=== PATIENT | male | born 1990 | race Caucasian/White ===

== ENCOUNTER 2019-02-20 09:51 | Outpatient (REF) | payer MEDICAID, SELFPAY ==
[2019-02-20 15:14] LABS: Cholesterol 203 mg/dL (50-200); Glucose 96 mg/dL (70-100); HDL Cholesterol 45 mg/dL (40-60); LDL CHOLESTEROL 136 mg/dL (<100); Triglyceride 91 mg/dL (30-150)
== END 2019-02-20 10:11 ==
LOC: NCHCN 09:51
PROVIDERS: PCP Nurse Practitioner Family; Visit Provider Nurse Practitioner Family
DX: Z13.1 Encounter for screening for diabetes mellitus (principal); Z13.220 Encounter for screening for lipoid disorders; Z00.00 Encounter for general adult medical examination without abnormal findings; M25.511 Pain in right shoulder
CPT/HCPCS: 80061; 82947; 83721

== ENCOUNTER 2019-09-04 08:54 | Emergency (ER) | payer BC, SELFPAY ==
[2019-09-04] VITALS (32 sets, daily range): BP systolic 113–162; BP diastolic 72–93; PULSE 73–135; RESP 11–29; TEMP 36.9–37; O2SAT 95–100
[2019-09-04] MEDS: Normal Saline Flush 10 ML SYR IVP (09:00)
--- NOTE | 2019-09-04 09:00 | ED.GENADUL_ITS ---
Discharge Plan Disposition Patient Disposition: HOME Condition: Improving Discharge Details Chief Complaint: Chest Pain Clinical Impression: Atypical chest pain Primary Care Provider: Shena Rocha ED Provider: Shane Mitchell Home Meds and New Rx's Prescriptions: New omeprazole 40 mg capsule,delayed release(DR/EC) 40 mg PO DAILY Qty: 20 RF: 0 Discharge Instructions Instructions: Chest Pain (ED) Additional Instructions: Your work-up today included blood work including serial cardiac troponin, chest x-ray, CT scan of the chest. I have ordered an outpatient stress test for you. Please follow-up with Shena Rocha in the office for recheck. Call the office of [facility] for an appointment time. Take Nexium as prescribed for a minimum of 2 weeks. Avoid eating 2 hours prior to bedtime. You may benefit from sleeping with head elevated 2-3 pillows. Return for recurrent chest pain, difficulty breathing, or any other acute concern. Medical Decision Making 29-year-old male presents from home with substernal chest pressure that awoke him from sleep at 3 AM and was associated with vomiting, diaphoresis. Denies si gnificant shortness of breath associated with it. He took some Zantac this morning with some improvement in her eyes feeling better. He is tachycardic and anxious in appearance. His exam is without significant finding. Differential diagnosis includes gastritis, nutcracker esophagus, PE, ACS. Patient given GI cocktail, Nexium, fluid bolus and referred for EKG, laboratory testing, chest x-ray. Diagnostic studies reveal unremarkable chest x-ray. Normal CBC, electrolytes reassuring, troponin negative x2, d-dimer elevated 2073. CT scan of the chest obtained without acute findings. Patient continued to improve, pulse corrected, no further discomfort. Discussed with him that I do feel he merits outpatient stress testing. 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 I will prescribe him 2 weeks of a proton pump inhibitor. He stable and improved, appropriate for discharge to home at this time. He has understand return precautions to the ER. Lab Data Lab results reviewed: Yes I reviewed the patient's lab results. Labs: Laboratory Results - last 24 hr 09/04/19 09/04/19 09/04/19 09:00 09:00 09:00 WBC 7.21 RBC 5.58 Hgb 16.3 Hct 46.0 MCV 82.4 MCH 29.2 MCHC 35.4 RDW 12.9 Plt Count 291 MPV 9.0 Immature Gran % 0.1 Neutrophils % 60.8 Lymphocytes % 27.3 Monocytes % 9.2 Eosinophils % 2.2 Basophils % 0.4 Absolute Neutrophils 4.38 Absolute Lymphocytes 1.97 Absolute Monocytes 0.66 Absolute Eosinophils 0.16 Absolute Basophils 0.03 D-Dimer 2073 H Sodium 141 Potassium 3.9 Chloride 104 Carbon Dioxide 28.0 Anion Gap 9.0 BUN 13 Creatinine 1.01 Estimated GFR/1.73 m2 >= 60.00 Glucose 103 H Calcium 9.2 Magnesium 1.9 Total Bilirubin 0.6 AST 23 ALT 30 Alkaline Phosphatase 65 Troponin I < 0.05 Total Protein 7.9 Albumin 4.1 Lipase 09/04/19 09/04/19 09:00 12:10 WBC RBC Hgb Hct MCV MCH MCHC RDW Plt Count MPV Immature Gran % Neutrophils % Lymphocytes % Monocytes % Eosinophils % Basophils % Absolute Neutrophils Absolute Lymphocytes Absolute Monocytes Absolute Eosinophils Absolute Basophils D-Dimer Sodium Potassium Chloride Carbon Dioxide Anion Gap BUN Creatinine Estimated GFR/1.73 m2 Glucose Calcium Magnesium Total Bilirubin AST ALT Alkaline Phosphatase Troponin I < 0.05 Total Protein Albumin Lipase 150 ECG Data Attestation: I personally reviewed and interpreted this ECG (s) as follows: Prior ECG tracings: not available for review Interpretation: Sinus tachycardia with a rate of 127, the QRS is narrow, there is no ST segment elevation, QTc 424 HPI General Mode of arrival: ambulatory . Date/Time Provider Initiated Documentation: 09/04/19 08:55 . Limitations to Documentation: no limitations . Information obtained by: patient and family . History of Present Illness 29 year old M presents to the emergency department with the chief complaint of 10 out of 10 substernal pressure and vomiting at 3 AM, described as moderate, and is localized to the chest. Patient neck. Patient started experiencing this hour(s) and it has been other (Improving). other things that improve symptom(s), (Sitting upright) Other factors that worsen symptoms (Lying flat) . Patient notes diaphoresis and nausea/vomiting. Patient did receive the following treatments prior to arrival, other (Zantac) Related Data Home Medications Medication Instructions Recorded Confirmed omeprazole 40 mg PO DAILY #20 cap 09/04/19 Previous Rx's Medication Instructions Recorded omeprazole 40 mg PO DAILY #20 cap 09/04/19 Allergies Allergy/AdvReac Type Severity Reaction Status Date / Time No Known Allergies Allergy Unverified 09/04/19 09:03 Review of Systems Review of Systems Narrative: No movement of the pain, denies shortness of breath, no lower extremity pain or swelling, no prolonged immobilization. No family history of sudden . 8 systems reviewed and otherwise negative. [facility] Social History Smoking/Tobacco Use Status: Current every day Tobacco Type: smokeless tobacco Do you feel safe at home: Yes Do you feel safe in your relationship?: Yes Exam Narrative Exam Narrative: GEN: awake, alert, oriented 3. Pleasant, well groomed, interactive, anxious. HEAD: Normocephalic, atraumatic ENT: Mucous membranes moist, oropharynx unremarkable, External ear exam unremarkable EYES: PERRL, EOMI NECK: Full ROM, no PETRA, no menigismus CHEST/RESP: Nontender, clear to auscultation bilateral, no wheeze/rhonchi/rales CARDIOVASCULAR: Regular and tachycardic rhythm, no murmur, rub mariella. 2+ Rad pulse bilateral ABDOMEN: Soft, nontender, no mass. +Bowel sounds EXT: Full ROM, no edema, no rash Neuro: Grossly normal neurologic exam, conversant, interactive. Psych: Speech fluent, thoughts congruent, affect anxious
--- NOTE | 2019-09-04 09:23 | DI.RAD_ITS ---
EXAM: XR CHEST 2V PA LATERAL INDICATION: Chest pressure. COMPARISON: No exams were available for comparison TECHNIQUE: 2D digital imaging was performed. FINDINGS: The heart is not enlarged. Lungs are clear and well expanded. No pleural effusion seen. IMPRESSION: No evidence of acute process.
[2019-09-04 09:38] LABS: Abs Immature Grans 0.01 k/cumm (0.0-0.09); Absolute Basophil Count 0.03 k/cumm (0.0-0.2); Absolute Eosinophil Count 0.16 k/cumm (0.0-0.7); Absolute Lymphocyte Count 1.97 k/cumm (1.2-3.4); Absolute Monocyte Count 0.66 k/cumm (0.11-0.7); Absolute Neutrophil Count 4.38 k/cumm (1.2-6.7); Basophils % 0.4; Eosinophils % 2.2; HGB 16.3 g/dL (13.5-17.5); Immature Grans % 0.1; Lymphocytes % 27.3; Mean Corp. HGB Concentration 35.4 g/dL (32.0-36.0); Mean Corpuscular Hemoglobin 29.2 pg (27.0-33.0); Mean Corpuscular Volume 82.4 fL (80-95); Monocytes % 9.2; Neutrophils % 60.8; Platelet Count 291 x1000/uL (130-400); RBC 5.58 m/cumm (4.50-6.00); RBC Distribution Width 12.9 % (11.8-14.1); White Blood Cell Count 7.21 k/cumm (4.4-10.8)
[2019-09-04] MEDS: Normal Saline 1,000 ML 1000 ML IV (09:52)
[2019-09-04 09:53] LABS: ALT 30 U/L (16-63); AST 23 U/L (15-37); Albumin 4.1 g/dL (3.4-5.0); Alkaline Phosphatase 65 U/L (46-116); BUN 13 mg/dL (7-18); Bilirubin, Total 0.6 mg/dL (0.2-1.0); CREATININE 1.01 mg/dL (0.70-1.30); Calcium 9.2 mg/dL (8.5-10.1); Chloride 104 mmol/L (98-107); Glucose 103 mg/dL (70-100); Magnesium 1.9 mg/dL (1.8-2.4); Potassium 3.9 mmol/L (3.5-5.1); Sodium 141 mmol/L (136-145); Total Protein 7.9 g/dL (6.4-8.2); Troponin I < 0.05 ng/mL (0.00-0.06)
[2019-09-04 10:02] LABS: Lipase 150 U/L (73-393)
[2019-09-04 10:14] LABS: D-Dimer 2073 ng/mlFEU (<500)
--- NOTE | 2019-09-04 10:16 | DI.CT_ITS ---
EXAM: CT CHEST PE CTA CLINICAL HISTORY: Abrupt SOB, Tachycardic, elev DDImer TECHNIQUE: Axial CT angiography was performed with multi-slice acquisition and multi-planar and/or [address] angiography of chest was performed with a bolus infusion of 100 cc of Omnipaque 350. COMPARISON: No exams were available for comparison FINDINGS: Lungs are clear. No pleural effusion or pneumothorax. No evidence of pulmonary embolic disease. Thoracic aorta and major branches appear normal. Tracheobronchial tree appears intact. No mediastina l or hilar adenopathy. Visualized portions of liver, spleen, pancreas, adrenals and kidneys appear normal. IMPRESSION: Negative CTA of the chest.
[2019-09-04] MEDS: Omnipaque 350 MG/ML 100 ML BTL IJ (11:13)
[2019-09-04 13:16] LABS: Troponin I < 0.05 ng/mL (0.00-0.06)
--- NOTE | 2019-09-04 17:32 | NUR.NOTE ---
Nursing Note: Referral faxed to [facility] for follow up. Vanessa Owen.
== END 2019-09-04 14:13 | disposition home or self-care (01) ==
PROVIDERS: Emergency Provider Emergency Medicine; PCP Nurse Practitioner Family
DX: R07.89 Other chest pain (principal); R00.0 Tachycardia, unspecified
CPT/HCPCS: 36415; 71275; 80053; 83690; 93005; 96361; 96374; 99285; 71046; 83735; 84484; 85025; 85379; 93010; 99284; J3490

== ENCOUNTER 2019-09-11 01:03 | Outpatient (CLI) | payer BC, SELFPAY ==
--- NOTE | 2019-09-11 08:30 | ETT_ITS ---
APPROVED REPORT Exam: Exercise Treadmill Patient Location: Out-Patient Stress Nurse: Marilee Haas RN Baseline Rhythm: NSR BMI: 28.47 Indications: Patient was seen in the ED on 09/04/19 with chief complaint of chest pain. Pt describes an episode of being awakened from sleep with severe chest pains radiating into his shoulders it was a ssociated with shortness of breath and nausea, he also vomited. He has had no further episodes since. Medical History Medical History: Fatigue Cardiac Medications: Omeprazole 40 mg daily. , Allergies: No known drug allergies Cardiac Risk Factors: Childhood Asthma. Former smoker quit cigarettes 6 years ago, currently chews to bacoo. Pretest Chest Pain Characteristics: Non-exertional Chest pain Exercise History: Physically active Stress Test Details Test: Exercise stress testing was performed using a Zion protocol. Rest Stress HR Max Heart Rate (APMHR): 189 bpm Resting HR Supine: 93 bpm Target HR (85% APMHR): 160 bpm Resting HR Standin bpm Max HR Achieved: 179 bpm % of APMHR: 94 Recovery HR: 117 bpm HR response to stress: Normal HR response to stress BP Resting BP Supine: 134/80 mmHg Resting BP Standin/90 mmHg Max BP: 210/98 mmHg Recovery BP: 138/72 mmHg BP response to stress: Abnormal hypertensive response to stress. ECG Resting ECG: Sinus Rhythm Stress ECG: Sinus Tachycardia ST Change: No significant ST segment changes Arrhythmia: None Recovery ECG: Sinus Rhythm, normal EKG Recovery ST Change: No significant ST segment changes Recovery Arrhythmia: None Clinical Time of Stop for Zion: 1200 Reason for Termination: Chest pain/Anginal equivalent Stress Symptoms: Chest pain, Dyspnea, General Fatigue Exercise duration: 12 min00 sec Highest Stage Achieved: Stage 4: 4.2 mph at 16% grade. Exercise capacity: 13.48 METs Functional Capacity: Average Capacity Scale: Active Stress ECG Conclusion 1. This patient demonstrated excellent exercise capacity. 2. This represents a maximal stress test. 3. The patient had a hypertensive response to exercise. 4. The patient reported atypical chest pain towards the end of exercise. 5. The Rebolledo Score (7) estimates an annual cardiovascular mortality of 0% and a five year survival of 95% Using the Rebolledo Score there is a low probability of any angiographic coronary disease. 6. There is no prior test available for comparison Test Summary Supine 93 134/80 Standing 112 130/90 1 03:00 10 1.7 128 4.64 144/82 2 02:59 12 2.5 141 7.05 190/84 3 03:00 14 3.4 158 10.16 210/98 4 03:00 16 4.2 179 13.48 210/98 2/10 chest pain. Dull ache left chest. 1 minute recovery 167 186/64 3 minute recovery 129 170/80 4 minute recovery chest pain subsided. 6 minute recovery 118 140/76 9 minute recovery 117 138/72
== END 2019-09-11 01:23 ==
PROVIDERS: PCP Nurse Practitioner Family; Visit Provider Emergency Medicine
DX: R07.9 Chest pain, unspecified (principal); R06.02 Shortness of breath; F17.220 Nicotine dependence, chewing tobacco, uncomplicated
CPT/HCPCS: 93017

== ENCOUNTER → 2023-11-09 01:29 | Outpatient (CLI) | payer OTHER, SELFPAY ==
--- NOTE | 2023-11-09 08:24 | DI.RAD_ITS ---
Exam(s) XR SHOULDER RT COMPLETE 2+V EXAM: XR SHOULDER RT COMPLETE 2+V CLINICAL HISTORY: [id number] Pain right shoulder [id number]. TECHNIQUE: 2D digital imaging was performed of the right shoulder. Five images were obtained. AP, Grashey, Y-view and axillary views were obtained. COMPARISON: No exams were available for comparison FINDINGS: BONES: No acute fracture is present. No bony destructive lesion is seen. JOINTS: No dislocation present. The glenohumeral and acromioclavicular joints are well maintained. SOFT TISSUE: Normal. IMPRESSION: Unremarkable radiographs of the right shoulder. DATA REPOSITORY: RADIATION DOSE DELIVERED:
--- NOTE | 2023-11-09 08:25 | DI.RAD_ITS ---
Exam(s) XR KNEE RT 3V AP,LAT,TAWANNA EXAM: XR KNEE RT 3V AP,LAT,TAWANNA CLINICAL HISTORY: [id number] Pain in unspecified knee. TECHNIQUE: 2D digital imaging was performed of the right knee. Three views obtained. AP, lateral an d PA tunnel views were obtained. COMPARISON: CR XR CHEST 2V PA LATERAL from 09/04/2019 FINDINGS: BONES: No acute fracture is present. No bony destructive lesion is seen. JOINTS: The knee is normally aligned. No joint effusion is seen. SOFT TISSUE: There is a linear density seen in the posterior soft tissues measuring 2.5 cm in length. IMPRESSION: 1. No acute bone or joint abnormality. 2. 2.5 cm linear density posterior to the knee in the soft tissues. This is of uncertain clinical si gnificance. This may lie within the popliteal artery or vein. Please correlate with patient's surgi mary history. A CT scan may be considered for further evaluation. Unexpected findings DATA REPOSITORY: RADIATION DOSE DELIVERED:
--- NOTE | 2023-11-09 08:25 | DI.RAD_ITS ---
Exam(s) XR KNEE LT 3V AP,LAT,TAWANNA EXAM: XR KNEE LT 3V AP,LAT,TAWANNA CLINICAL HISTORY: [id number] Pain in unspecified knee. TECHNIQUE: 2D digital imaging was performed of the left knee. Three images were obtained. AP, late ral and PA tunnel views were obtained. COMPARISON: CR XR KNEE RT 3V AP,LAT,TAWANNA from 11/09/2023 FINDINGS: BONES: No acute fracture is present. No bony destructive lesion is seen. JOINTS: The knee is normally aligned. No joint effusion is seen. No loose body. SOFT TISSUE: Normal. IMPRESSION: Normal radiographs of the left knee. DATA REPOSITORY: RADIATION DOSE DELIVERED:
== END ==
PROVIDERS: PCP Nurse Practitioner Family; Visit Provider Physician Assistant
DX: M25.562 Pain in left knee (principal); M25.561 Pain in right knee
CPT/HCPCS: 73562; 73030

== ENCOUNTER 2023-11-22 03:22 | Outpatient (CLI) | payer OTHER, SELFPAY ==
[2023-11-22] MEDS: Inhaler, Assist Device 1 EACH MC (09:06)
[2023-11-22] MEDS: Levalbuterol HFA 15 GM INH 4 PUFF IH (09:06)
--- NOTE | 2023-11-23 09:52 | W.PFT ---
Date of service: 11/22/23 Time of Service: 07:55 Pulmonary Function Test Result Indications: Chronic cough Interpretation Spirometry: There is no airflow limitation. No bronchodilator response. Lung Volumes: Normal lung volumes Diffusion Capacity: Normal diffusion Airway Pressure: Normal airways resistance Impression Normal pulmonary function testing Clinical Correlation therefore is recommended.
== END 2023-11-22 03:23 | disposition home or self-care (01) ==
LOC: RT 03:22
PROVIDERS: PCP Nurse Practitioner Family; Visit Provider Physician Assistant
DX: R05.3 Chronic cough (principal)
CPT/HCPCS: 94060; 94726; 94729